=== PATIENT | female | born 1945 | race Caucasian/White ===

== ENCOUNTER 2017-11-11 01:49 | Emergency (ER) | payer MEDICARE, OTHER ==
[2017-11-11] MEDS ORDERED: Bacitracin Zinc 1 Packet ONE (02:02)
== END 2017-11-11 02:08 | disposition home or self-care (01) ==
LOC: BURERS 01:49
DX: S61.210A Laceration without foreign body of right index finger without damage to nail, initial encounter (principal); E78.5 Hyperlipidemia, unspecified; I10 Essential (primary) hypertension; Z79.899 Other long term (current) drug therapy; W25.XXXA Contact with sharp glass, initial encounter
CPT/HCPCS: 12001